=== PATIENT | female | born 1940 | race Caucasian/White ===

== ENCOUNTER 2018-06-01 01:43 | Emergency (ER) | payer OTHER, BC ==
[~2018-06-01] VITALS: Ht 170.2 cm; Wt 54.4 kg
[~2018-06-01 01:43] MED LIST: ASPI-1153 PO; ATEN-41 PO; CLOP75TA2 PO; LEVO75TA7 PO; SULF1TAB48 PO
[2018-06-01 01:46] VITALS: BP_SYST 139
[2018-06-01] MEDS ORDERED: ONDANSETRON HCL 4 MG/2 ML VIAL IVP ONE (02:00)
[2018-06-01] MEDS ORDERED: MORPHINE 4 MG/ML INJ. SYRINGE IVP ONE (02:00)
[2018-06-01 02:51] LABS: BASOPHILS # (AUTO) 0.1 K/uL (0.0-0.2); BASOPHILS % (AUTO) 1.2 % (0.0-2.0); EOSINOPHILS # (AUTO) 0.3 K/uL (0.0-0.4); HEMATOCRIT 37.3 % (36-48); HEMOGLOBIN 12.2 g/dL (12.0-16.0); LYMPHOCYTES # (AUTO) 2.8 K/uL (1.0-5.5); LYMPHOCYTES % (AUTO) 28.1 % (20.5-51.5); MEAN CORPUSCULAR HEMOGLOBIN 30 pg (27-31); MEAN CORPUSCULAR HGB CONC 33 % (32-36); MEAN CORPUSCULAR VOLUME 93 fL (79.0-98.0); MONOCYTES # (AUTO) 0.8 K/uL (0.0-1.0); MONOCYTES % (AUTO) 7.8 % (1.7-9.3); NEUTROPHILS # (AUTO) 5.8 K/uL (1.8-7.7); NEUTROPHILS % (AUTO) 59.9 % (40.0-70.0); PLATELET COUNT (AUTO) 243 K/uL (130-430); RED BLOOD CELL COUNT(AUTO) 4.01 MIL/uL (4.2-6.2); RED CELL DISTRIBUTION WIDTH 13.1 % (9.0-15.0); WHITE BLOOD COUNT (AUTO) 9.8 K/uL (4.8-10.8)
[2018-06-01 03:11] LABS: ANION GAP 8 (5-15); CHLORIDE 106 mmol/L (98-107); CREATININE 0.75 mg/dL (0.55-1.30); GLUCOSE 82 mg/dL (70-99); POTASSIUM 3.7 mmol/L (3.5-5.1); SODIUM SERUM 139 mmol/L (136-145); UREA NITROGEN, BLOOD 22 mg/dL (8-21)
[2018-06-01] MEDS ORDERED: MORPHINE 4 MG/ML INJ. SYRINGE IM ONE (03:15)
[2018-06-01 03:16] LABS: ALANINE AMINOTRANSFERASE 16 U/L (12-78); ASPARTATE AMINOTRANSFERASE 17 U/L (10-37); TOTAL BILIRUBIN 0.5 mg/dL (0.0-1.0)
[2018-06-01] MEDS ORDERED: ONDANSETRON HCL 4 MG/2 ML VIAL IM ONE (03:30)
[2018-06-01] MEDS ORDERED: BACITRACIN 1 GM OINT TP ONE (03:50)
[2018-06-01 04:30] VITALS: BP_SYST 125
== END 2018-06-01 04:30 | disposition home or self-care (01) ==
LOC: SED 01:43
DX: S42.251A Displaced fracture of greater tuberosity of right humerus, initial encounter for closed fracture (principal); I10 Essential (primary) hypertension; Z86.73 Personal history of transient ischemic attack (TIA), and cerebral infarction without residual deficits; Z85.038 Personal history of other malignant neoplasm of large intestine; Z85.828 Personal history of other malignant neoplasm of skin; Z88.0 Allergy status to penicillin; Z79.82 Long term (current) use of aspirin; Z79.899 Other long term (current) drug therapy; W18.09XA Striking against other object with subsequent fall, initial encounter; Y93.89 Activity, other specified; Y92.89 Other specified places as the place of occurrence of the external cause; Y99.8 Other external cause status
CPT/HCPCS: 36415; 71045; 73060; 80053; 82550; 85025; 96372; 99284; J2270; J2405

== ENCOUNTER 2018-08-23 11:29 | Emergency (ER) | payer OTHER, BC ==
[~2018-08-23] VITALS: Ht 160 cm; Wt 43.1 kg
[2018-08-23 11:50] VITALS: BP_SYST 112
--- NOTE | 2018-08-23 12:00 | NUR ---
Patient to ER bed 8 to gown for evaluation. Side rails up. Report given to Jason EDMONDS.
--- NOTE | 2018-08-23 12:30 | NUR ---
Patient presented to ER with c/o confusion and foul smelling urine. Patient A&Ox2,slurred speech, skin pink, respirations equal bilat, afebrile. Patient arrived in wheelchair with daughter. Daughter stated that pt home meds were changed this week and pt has foul smelling urine, denies pain/N/V/D.
[2018-08-23 12:39] LABS: BASOPHILS % (AUTO) 0.5 % (0.0-2.0); EOSINOPHILS # (AUTO) 0.3 K/uL (0.0-0.4); EOSINOPHILS % (AUTO) 3.8 % (0.0-4.0); HEMATOCRIT 38.7 % (36-48); HEMOGLOBIN 12.6 g/dL (12.0-16.0); LYMPHOCYTES # (AUTO) 2.8 K/uL (1.0-5.5); LYMPHOCYTES % (AUTO) 33.7 % (20.5-51.5); MEAN CORPUSCULAR HEMOGLOBIN 31 pg (27-31); MEAN CORPUSCULAR HGB CONC 33 % (32-36); MEAN CORPUSCULAR VOLUME 94 fL (79.0-98.0); MONOCYTES # (AUTO) 0.8 K/uL (0.0-1.0); MONOCYTES % (AUTO) 9.2 % (1.7-9.3); NEUTROPHILS # (AUTO) 4.4 K/uL (1.8-7.7); NEUTROPHILS % (AUTO) 52.8 % (40.0-70.0); PLATELET COUNT (AUTO) 299 K/uL (130-430); RED BLOOD CELL COUNT(AUTO) 4.13 MIL/uL (4.2-6.2); RED CELL DISTRIBUTION WIDTH 13.9 % (9.0-15.0); WHITE BLOOD COUNT (AUTO) 8.4 K/uL (4.8-10.8)
--- NOTE | 2018-08-23 12:40 | NUR ---
ER Dr. Alaniz at bedside examining patient.
[2018-08-23 12:52] LABS: ANION GAP 9 (5-15); CALCIUM 9.8 mg/dL (8.4-11.0); CHLORIDE 104 mmol/L (98-107); CREATININE 0.89 mg/dL (0.55-1.30); GLUCOSE 98 mg/dL (70-99); POTASSIUM 4.4 mmol/L (3.5-5.1); SODIUM SERUM 141 mmol/L (136-145); UREA NITROGEN, BLOOD 23 mg/dL (8-21)
[2018-08-23 12:57] LABS: ALANINE AMINOTRANSFERASE 12 U/L (12-78); ASPARTATE AMINOTRANSFERASE 13 U/L (10-37); TOTAL BILIRUBIN 0.4 mg/dL (0.0-1.0)
[2018-08-23 13:32] LABS: BILIRUBIN,URINE NEGATIVE (NEGATIVE); BLOOD, URINE 3+ (NEGATIVE); CLARITY/URINE CLOUDY (CLEAR); COLOR,URINE YELLOW (YELLOW); GLUCOSE,URINE NEGATIVE (NEGATIVE); KETONES,URINE NEGATIVE (NEGATIVE); LEUKOCYTE ESTERASE ,URINE 3+ (NEGATIVE); NITRITE, URINE POSITIVE (NEGATIVE); PROTEIN URINE 2+ (NEGATIVE); UROBILINOGEN,URINE 0.2 (0.2-1.0)
[2018-08-23 13:45] LABS: BACTERIA,URINE MODERATE /HPF (None Seen); RBC,URINE >100 /HPF (0-3); WBC,URINE >100 /HPF (0-3)
[2018-08-23] MEDS ORDERED: NACL 0.9% 1,000 ML IV ONE (14:24)
[2018-08-23] MEDS ORDERED: DIPHENHYDRAMINE INJ 50 MG/ML VIAL IVP ONE (14:30)
[2018-08-23] MEDS ORDERED: cefTRIAXone 1 GM IVPB PREMIX 50 ML IV ONE (14:30)
[2018-08-23 15:57] VITALS: BP_SYST 119
--- NOTE | 2018-08-23 15:57 | NUR ---
Patient given written and verbal discharge instructions and verbalizes understanding. ER MD Alaniz discussed with patient the results and treatment provided. Patient in stable condition. ID arm band removed. IV catheter removed intact and dressing applied, no active bleeding. Rx of Keflex, Pyridium given. Patient educated on pain management and to follow up with PMD. Pain Scale 0. Opportunity for questions provided and answered. Medication side effect fact sheet provided.
--- NOTE | 2018-08-23 16:53 | NUR ---
Pharmacist called with report that the patient had a allergic reaction to PCN in the past causing airway obstruction. Per Dr. Alaniz the prescription was changed to Macrobid 100mg PO Bid x 7 days.
--- NOTE | 2018-08-25 19:09 | NUR ---
final C & S report reviewed shows resistance to previously pescribed Macrobid. Patients daughter agreed to bring her back in for revaluation.
== END 2018-08-23 16:53 | disposition home or self-care (01) ==
LOC: SED 11:29
DX: N39.0 Urinary tract infection, site not specified (principal); G30.9 Alzheimer's disease, unspecified; I10 Essential (primary) hypertension; Z86.73 Personal history of transient ischemic attack (TIA), and cerebral infarction without residual deficits; Z85.828 Personal history of other malignant neoplasm of skin; Z85.038 Personal history of other malignant neoplasm of large intestine; Z79.82 Long term (current) use of aspirin; Z79.899 Other long term (current) drug therapy; Z88.0 Allergy status to penicillin
CPT/HCPCS: 36415; 80053; 81000; 83605; 85025; 87040; 87086; 87186; 96365; 96375; 99283; J0696; J1200; J7030

== ENCOUNTER 2018-08-25 21:36 | Inpatient (IN) | payer OTHER, BC ==
[~2018-08-25] VITALS: Ht 165.1 cm; Wt 49.0 kg
[2018-08-25 21:40] VITALS: BP_SYST 153
--- NOTE | 2018-08-25 21:57 | NUR ---
Pt called back to ER r/t Urine Cx results and need for change in antibiotic. Pt positive for Proteus mirabilis. Pt BIB daughter via W/C, alert, responsive, NAD. Addendum: 08/26/18 at 0000 by SDEDAJ Pt from [facility] in [place], [place].
--- NOTE | 2018-08-25 21:57 | NUR ---
[facility] Side rails up. Report given to SUZETTE EDMONDS.
--- NOTE | 2018-08-25 22:00 | NUR ---
Dr. Huddleston evaluating pt.
--- NOTE | 2018-08-25 22:15 | NUR ---
Lab drawing blood.
[2018-08-25] MEDS ORDERED: GENTAMICIN 80 mg/100 mL NS 100 ML IV ONE (22:45)
--- NOTE | 2018-08-25 22:48 | NUR ---
Pt move to bed 7.
--- NOTE | 2018-08-25 23:00 | NUR ---
X-ray at bedside.
[2018-08-25 23:09] LABS: ANION GAP 10 (5-15); BASOPHILS % (AUTO) 0.3 % (0.0-2.0); CALCIUM 9.4 mg/dL (8.4-11.0); CHLORIDE 106 mmol/L (98-107); CREATININE 0.85 mg/dL (0.55-1.30); EOSINOPHILS # (AUTO) 0.8 K/uL (0.0-0.4); EOSINOPHILS % (AUTO) 6.5 % (0.0-4.0); GLUCOSE 126 mg/dL (70-99); HEMATOCRIT 37.3 % (36-48); HEMOGLOBIN 12.1 g/dL (12.0-16.0); LYMPHOCYTES # (AUTO) 1.7 K/uL (1.0-5.5); LYMPHOCYTES % (AUTO) 13.8 % (20.5-51.5); MEAN CORPUSCULAR HEMOGLOBIN 31 pg (27-31); MEAN CORPUSCULAR HGB CONC 33 % (32-36); MEAN CORPUSCULAR VOLUME 94 fL (79.0-98.0); MONOCYTES # (AUTO) 0.9 K/uL (0.0-1.0); MONOCYTES % (AUTO) 7.4 % (1.7-9.3); NEUTROPHILS # (AUTO) 8.9 K/uL (1.8-7.7); PLATELET COUNT (AUTO) 285 K/uL (130-430); RED BLOOD CELL COUNT(AUTO) 3.97 MIL/uL (4.2-6.2); SODIUM SERUM 144 mmol/L (136-145); UREA NITROGEN, BLOOD 24 mg/dL (8-21); WHITE BLOOD COUNT (AUTO) 12.4 K/uL (4.8-10.8)
--- NOTE | 2018-08-25 23:10 | NUR ---
#14 Fr In/Out Urinary Cath performed, approx 150 mL dark alayna and cloudy urine return. Specimen collected and sent to lab. Pt tolerated fair.
[2018-08-25 23:14] LABS: ALANINE AMINOTRANSFERASE 11 U/L (12-78); ASPARTATE AMINOTRANSFERASE 13 U/L (10-37); TOTAL BILIRUBIN 0.3 mg/dL (0.0-1.0)
--- NOTE | 2018-08-25 23:20 | NUR ---
# 20 gauge angiocath placed to RAC. Use of asceptic technique. Opsite placed over site. Blood return noted. Blood for lab drawn from site. Flushed with 10 cc of normal saline. No evidence of infiltration noted. Patient tolerated well.
[2018-08-25 23:22] LABS: BILIRUBIN,URINE NEGATIVE (NEGATIVE); BLOOD, URINE 3+ (NEGATIVE); CLARITY/URINE HAZY (CLEAR); COLOR,URINE YELLOW (YELLOW); GLUCOSE,URINE NEGATIVE (NEGATIVE); KETONES,URINE TRACE (NEGATIVE); LEUKOCYTE ESTERASE ,URINE 3+ (NEGATIVE); NITRITE, URINE NEGATIVE (NEGATIVE); PROTEIN URINE 1+ (NEGATIVE); UROBILINOGEN,URINE 0.2 (0.2-1.0)
[2018-08-25 23:34] LABS: BACTERIA,URINE MANY /HPF (None Seen); RBC,URINE 20-50 /HPF (0-3); WBC,URINE >100 /HPF (0-3)
[2018-08-25 23:35] LABS: MUCUS,URINE 1+ /LPF (None Seen)
--- NOTE | 2018-08-25 23:50 | NUR ---
Patient will be admitted to care of Dr. Beltrán. Admitted to Med/Surg unit. Will go to room 121A. Belongings list completed. Summary report printed. Report given to KENDAL Laird.
--- NOTE | 2018-08-25 23:55 | NUR ---
Pt DNR status. POLST on chart.
--- NOTE | 2018-08-25 23:59 | NUR ---
Specimen for MRSA collected and sent to lab.
--- NOTE | 2018-08-25 23:59 | NUR ---
Medication reconciliation completed with information provided by pt.'s daughter. Any prior medication reconciliation on file was reviewed and corrected.
--- NOTE | 2018-08-26 00:02 | NUR ---
ADMISSION: The patient, DORIS WAYNE, 78 y/o, F admitted by SHON MATSON MD, with the diagnosis of UTI ,daughter at bedside ,was given written information regarding hospital policies, unit procedures and contact persons.
[2018-08-26 00:14] VITALS: BP_SYST 114
--- NOTE | 2018-08-26 01:05 | NUR ---
Left elbow skin tear was cleansed with normal saline and pat dried. Non-stick dressing was applied and wrapped with Yasmeen. Wound is 100% pinkish with small amount of pinkish drainage noted. No odor noted.
--- NOTE | 2018-08-26 03:00 | NUR ---
Pt is sleeping without any distress noted. Fall and safety precautions are in place. Saline lock is intact in RAC.
--- NOTE | 2018-08-26 05:00 | NUR ---
Pt is sleeping without any distress noted. Saline lock is intact in RAC. Fall and safety precautions are in place
--- NOTE | 2018-08-26 06:44 | NUR ---
Pt is awake and resting comfortably in bed. All pt's needs were attended to. No fall or injury noted this shift. Saline lock is intact in RAC. Call light is with pt and bed alarm is on. Will endorse to day shift nurse.
--- NOTE | 2018-08-26 07:08 | NUR ---
Code status Spoke with the patient's daughter, So, to verify the patient's code status. Per So, the patient is a full code. This was verified between two RN's, myself, Zulma Castillo and Eitan Huertas.
--- NOTE | 2018-08-26 07:39 | NUR ---
INITIAL NOTE RECEIVED PT IN BED, NO S/S OF DISTRESS OR SOB NOTED, PT HAS NO C/O PAIN AT THIS TIME, PT IN STABLE CONDITION, PT AAOX1, VERBAL, CONFUSED, PROVIDED PT WITH REALITY ORIENTATION. IV CATHETER PATENT, NO SIGNS OF INFECTION OR INFILTRATION NOTED. BED AT LOWEST POSITION, CALL LIGHT WITHIN REACH, WILL CONTINUE TO MONITOR PT FOR ANY CHANGES, FALL AND SAFETY PRECAUTIONS IN PLACE. CONTACT PRECAUTIONS IN PLACE.
[2018-08-26 07:41] VITALS: BP_SYST 127
--- NOTE | 2018-08-26 10:19 | NUR ---
Nutrition Update Tevin Scale 15 noted. Pt admitted for UTI. Diet: regular BMI: 18 kg/m2 RD to follow per nutrition care standards.
--- NOTE | 2018-08-26 10:20 | NUR ---
ROUNDS PT IN BED, NO S/S OF DISTRESS OR SOB NOTED, PT HAS NO C/O PAIN AT THIS TIME, PT IN STABLE CONDITION, PT RESTING COMFORTABLY, WILL CONTINUE TO MONITOR PT FOR ANY CHANGES.
[2018-08-26 12:09] VITALS: BP_SYST 131
--- NOTE | 2018-08-26 12:50 | NUR ---
ROUNDS PT IN BED, NO S/S OF DISTRESS OR SOB NOTED, PT HAS NO C/O PAIN AT THIS TIME WHEN ASKED. NO FACIAL GRIMACING NOTED, PT IN STABLE CONDITION, PT RESTING COMFORTABLY, TALKING TO DAUGHTER AT BEDSIDE, WILL CONTINUE TO MONITOR PT FOR ANY CHANGES.
--- NOTE | 2018-08-26 14:23 | NUR ---
MD CALL DR MATSON PAGED TO ASK IF HE CAN ORDER A BOOST FOR PATIENT DUE TO DECREASED APPETITE, AWAITING CALL BACK.
--- NOTE | 2018-08-26 15:17 | NUR ---
Wound Evaluation: Wound Consult ordered for Low Tevin Score. Patient evaluated for a low Tevin score of 15. Patient was awake, alert, confused, and received in a Bell Bed with an IsoFlex ABDULKADIR mattress. Patient needs assist to turn in bed. Skin is fair (-). Recommend reposition patient side to side only every 2 hours with pillow support. Elevate, offload and float bilateral heels with one pillow lengthwise under each extremity at all times. Offload pressure areas with pillows for pressure re-distribution. Perform skin care and monitor skin integrity Q shift. Use moisture barrier cream on moisture susceptible areas QID and PRN for soiling. Skin assessment: 1. Left Lateral Forearm: Full thickness skin tear, present on admission. Wound bed has 100% dull pink tissue. No odor, scant sanguineous drainage. Periwound intact, right lateral aspect of periwound has rolled up residual skin. Surrounding skin is fragile. Recommend: Cleanse skin tear with normal saline. Pat dry. Apply hydrogel to skin tear bed. Apply sure prep to cheri tear. Cover with nonadhesive foam dressing. Wrap with Yasmeen wrap. Perform skin tear care daily, and as needed for dressing soiling or dislodgment. 2. Bilateral buttocks Blanchable red patches/psoriasis, present on admission. Recommend: Cleanse involved area with mild soap and water. Pat dry. Apply Hydraguard barrier cream to involved area. Perform site care 4 times a day, and as needed for soiling. 3. Bilateral heels: Blanchable redness, present on admission. Recommend: No dressings needed. Elevate, offload and float bilateral heels with one pillow lengthwise under each extremity at all times.
[2018-08-26 16:09] VITALS: BP_SYST 111
--- NOTE | 2018-08-26 17:08 | NUR ---
Dietitian Recommendations * Recommend Regular diet w/ Ensure Enlive TID to promote oral intake. (ONS provides an additional 1050 kcal and 60 g Pro per day.) LP, RD Please refer to Nutrition Assessment for details.
--- NOTE | 2018-08-26 18:21 | NUR ---
CLOSING NOTE PT IN BED, NO S/S OF DISTRESS OR SOB NOTED, PT HAS NO C/O PAIN AT THIS TIME, PT IN STABLE CONDITION, PT AAOX1, VERBAL, CONFUSED, PROVIDED PT WITH REALITY ORIENTATION. IV CATHETER PATENT, NO SIGNS OF INFECTION OR INFILTRATION NOTED. BED AT LOWEST POSITION, CALL LIGHT WITHIN REACH, WILL ENDORSE CARE OF PT TO INCOMING NURSE, FALL AND SAFETY PRECAUTIONS IN PLACE. CONTACT PRECAUTIONS IN PLACE.
--- NOTE | 2018-08-26 19:10 | NUR ---
OPENING NOTE Received report from Kiley. Patient resting in bed awake, alert, oriented x1 with confusion. Re-oriented patient. Breathing unlabored and even on room air. No signs of distress, no needs at this time. Fall, safety, aspiration, contact precautions in place. Bed in lowest position, brake on, alarm on, call light within reach. Will continue to monitor.
[2018-08-26] MEDS: ATENOLOL 25 MG TABLET(TENORMIN) PO SCH (20:21)
[2018-08-26] MEDS: CLOPIDOGREL BISULFATE 75 MG TABLET PO SCH (20:22)
[2018-08-26 20:25] VITALS: BP_SYST 113
[2018-08-26] MEDS: GENTAMICIN 80 mg/100 mL NS 100 ML IV SCH (22:46)
--- NOTE | 2018-08-26 22:59 | NUR ---
IV abx hung
[2018-08-27 00:20] VITALS: BP_SYST 137
--- NOTE | 2018-08-27 00:30 | NUR ---
ENDORSEMENT OF CARE Endorsed patient care to KENDAL Yañez. Report given.
--- NOTE | 2018-08-27 00:32 | NUR ---
Assumed nursing care of pt from nurse Mcnair. Pt is resting quietly in bed. No acute distress noted. Saline lock in RAC is without any signs of infiltration. Call light is with pt and bed alarm is on.
--- NOTE | 2018-08-27 02:00 | NUR ---
Pt is sleeping comfortably in bed. Fall and safety precautions are in place.
--- NOTE | 2018-08-27 04:00 | NUR ---
Pt is sleeping quietly in bed. Fall and safety precautions are in place.
--- NOTE | 2018-08-27 07:30 | NUR ---
OPENING NOTE patient is resting in bed, patient is able to state name and but is not sure where she is at, assessment completed, educated regeneration operator light system and plan of care, patient nodded her head and said okay, patient denies any pain at this time and no signs of respiratory distress, no other needs addressed at this time, IV line clean with no signs of infiltration, bed in the lowest position, three side rails up, call light within reach, bed close to station, contact precautions in place.
[2018-08-27 08:35] VITALS: BP_SYST 113
[2018-08-27] MEDS: LEVOTHYROXINE SODIUM 0.075 MG TABLET PO SCH (08:38)
[2018-08-27] MEDS: ASPIRIN 81 MG TABLET(ECOTRIN) PO SCH (08:38)
[2018-08-27 10:44] LABS: ANION GAP 5 (5-15); CALCIUM 9.4 mg/dL (8.4-11.0); CHLORIDE 110 mmol/L (98-107); CREATININE 0.59 mg/dL (0.55-1.30); GLUCOSE 133 mg/dL (70-99); POTASSIUM 3.9 mmol/L (3.5-5.1); SODIUM SERUM 145 mmol/L (136-145); UREA NITROGEN, BLOOD 18 mg/dL (8-21)
[2018-08-27 11:19] VITALS: BP_SYST 112
--- NOTE | 2018-08-27 11:19 | NUR ---
PATIENT IS RESTING IN BED no signs of pain or respiratory distress, no other needs addressed at this time, fall/safety precautions in place, contact precautions in place.
--- NOTE | 2018-08-27 14:08 | NUR ---
DC Planning: Per pt's request to speak with her dtr/So @ [phone] regarding dcp to snf for continue IV abx per dr. Beltrán's recommendation. Lindsay does not want pt. going to [facility]. She is coming in to get more info of the vendor choices at 3 pm today. Addendum: 08/28/18 at 0954 by Latesha Barraza RN Late entry: s/w So at 4 pm yesterday; discussing about snf of choice in the are. She requested 1. [facility], 2. [facility], and [facility] made aware.
[2018-08-27 14:50] VITALS: BP_SYST 115
--- NOTE | 2018-08-27 16:27 | NUR ---
rounds patient is resting in bed, visitor at the bedside, assisted patient with bedpan, no other needs addressed at this time, fall/safety precautions in place, contact precautions in place.
--- NOTE | 2018-08-27 18:45 | NUR ---
closing note patient is resting in bed, visitor present but is about to leave, assisted patient with repositioning, no other needs addressed at time, patient denies any pain, no signs of respiratory distress, will endorse report to noc shift nurse, fall/safety precautions in place, contact precautions in place.
[2018-08-27 20:05] VITALS: BP_SYST 121
--- NOTE | 2018-08-27 20:05 | NUR ---
Opening notes Pt AAOx1, VSS, afebrile. No s/s distress noted. Pt denies any pain at this time. Call light within reach. Bed low, locked, bed alarm on. Will continue to monitor.
[2018-08-27] MEDS: CLOPIDOGREL BISULFATE 75 MG TABLET PO SCH (21:27)
[2018-08-27] MEDS: ATENOLOL 25 MG TABLET(TENORMIN) PO SCH (21:27)
--- NOTE | 2018-08-27 22:00 | NUR ---
Rounds/skin care Pt alert, awake, incontinent BM/urine. Pericare provided with SKILLED NURSING FACILITY COUNSELOR assist. Hydraguard skin barrier cream applied to sacral area. Repositioned. Call light within reach. Safety measures in place. To monitor.
[2018-08-27] MEDS: GENTAMICIN 80 mg/100 mL NS 100 ML IV SCH (23:59)
[2018-08-28 00:15] VITALS: BP_SYST 134
--- NOTE | 2018-08-28 02:30 | NUR ---
IV Re start Pt awake. IV restarted L. FA 22G good blood return. Pt tolerated well. Call light within reach. Bed low, locked, alarm on. maintained contact isolation. To monitor.
--- NOTE | 2018-08-28 04:35 | NUR ---
Rounds Pt asleep. No s/s distress or discomfort noted. Safety measures maintained. Bed alarm on. To monitor.
--- NOTE | 2018-08-28 06:45 | NUR ---
Closing notes Pt sleeping at this time. No s/s distress or discomfort noted. R. FA 22G saline lock clear and patent. Call light within reach. Bed low, locked, alarm on. To endorse to AM nurse.
--- NOTE | 2018-08-28 07:50 | NUR ---
OPENING NOTE patient is resting in bed, patient is able to state name and but is not sure where she is at, assessment completed, educated insulation worker interior surface light system and plan of care, patient nodded her head and said okay, patient denies any pain at this time and no signs of respiratory distress, no other needs addressed at this time, IV line clean with no signs of infiltration, bed in the lowest position, three side rails up, call light within reach, bed close to station, latest urine culture came back negative and patient is no longer in isolation, head charger aware.
[2018-08-28] MEDS: LEVOTHYROXINE SODIUM 0.075 MG TABLET PO SCH (08:05)
[2018-08-28] MEDS: ASPIRIN 81 MG TABLET(ECOTRIN) PO SCH (08:05)
[2018-08-28 08:14] VITALS: BP_SYST 114
--- NOTE | 2018-08-28 10:00 | NUR ---
rounds patient is resting in bed, eyes closed, breathing easy and nonlabored, no signs of distress, no other needs addressed at this time, fall/safety precautions in place.
[2018-08-28 11:54] VITALS: BP_SYST 109
--- NOTE | 2018-08-28 12:26 | NUR ---
Claude Beltrán: Paging Dr. Beltrán regarding home medication orders for discharge. Awaiting callback. Addendum: 08/28/18 at 1232 by Rona Franz RN Spoke to Dr. Beltrán: Spoke to Dr. Beltrán, per Dr. Beltrán "Continue all home meds". Orders to be entered by
[2018-08-28 12:39] VITALS: BP_SYST 109
--- NOTE | 2018-08-28 13:00 | NUR ---
rounds patient is resting in bed, HOTEL ASSISTANT MANAGER attempted to feed patient, patient was disinterested, no other needs addressed at this time, fall/safety precautions in place.
--- NOTE | 2018-09-02 15:58 | NUR ---
Discharge Follow Up Phone Call DERRICK CAR OPERATOR phoned patient, , and spoke with her daughter, So. So stated that patient was doing well. She has a follow up appointment with her PCP on 09/03/18. No questions or concerns.
== END 2018-08-28 13:30 | disposition home or self-care (01) | DRG 690 ==
LOC: SED 21:36 → SMU 23:37
PROVIDERS: ADMIT Internal Medicine Hospice and Palliative Medicine; ATTEND Internal Medicine Hospice and Palliative Medicine
DX: N39.0 Urinary tract infection, site not specified (principal); F02.80 Dementia in other diseases classified elsewhere, unspecified severity, without behavioral disturbance, psychotic disturbance, mood disturbance, and anxiety; G30.9 Alzheimer's disease, unspecified; I10 Essential (primary) hypertension; Z16.24 Resistance to multiple antibiotics; Z86.73 Personal history of transient ischemic attack (TIA), and cerebral infarction without residual deficits; Z90.49 Acquired absence of other specified parts of digestive tract; Z79.899 Other long term (current) drug therapy; Z79.82 Long term (current) use of aspirin; Z88.0 Allergy status to penicillin; Z85.038 Personal history of other malignant neoplasm of large intestine; Z85.828 Personal history of other malignant neoplasm of skin
CPT/HCPCS: 36415; 71045; 80048; 80053; 81000-TC; 83605; 84484; 85025; 87040-TC; 87081; 87086; 87186-TC; 93005; 96365; 96375; 99283; 99285; J0696; J1200; J1580; J7030

== ENCOUNTER 2018-09-04 10:53 | Inpatient (IN) | payer OTHER, BC ==
[~2018-09-04] VITALS: Ht 160 cm; Wt 49.0 kg
[2018-09-04 11:13] VITALS: BP_SYST 125
--- NOTE | 2018-09-04 11:15 | NUR ---
Patient to ER bed 07 to gown for evaluation. Side rails up.
--- NOTE | 2018-09-04 11:20 | NUR ---
patient BIB daughter, AOx1-2 from board and care with c/o no bowelmovement x 3 days. patient has slow to normal active bowelsounds. abd is firm and nontender upon palpation. patient has no other complaint or injury at this time.
--- NOTE | 2018-09-04 11:22 | NUR ---
ER at bedside examining patient.
--- NOTE | 2018-09-04 11:40 | NUR ---
patient sent to Radiology for CT scan in stable condition.
--- NOTE | 2018-09-04 11:58 | NUR ---
16 # FR In and Out catheter with use of sterile technique. Immediate return of 200 ml urine noted. Urine sample collected and sent to lab. Pt tolerated procedure .
--- NOTE | 2018-09-04 12:10 | NUR ---
Pt resting at this time, no s/s of distress, family at bedside.
[2018-09-04 12:27] LABS: BASOPHILS # (AUTO) 0.1 K/uL (0.0-0.2); BASOPHILS % (AUTO) 0.4 % (0.0-2.0); EOSINOPHILS % (AUTO) 0.1 % (0.0-4.0); HEMATOCRIT 36.9 % (36-48); HEMOGLOBIN 11.8 g/dL (12.0-16.0); LYMPHOCYTES # (AUTO) 1.8 K/uL (1.0-5.5); LYMPHOCYTES % (AUTO) 11.4 % (20.5-51.5); MEAN CORPUSCULAR HEMOGLOBIN 31 pg (27-31); MEAN CORPUSCULAR HGB CONC 32 % (32-36); MEAN CORPUSCULAR VOLUME 95 fL (79.0-98.0); MONOCYTES # (AUTO) 1.2 K/uL (0.0-1.0); NEUTROPHILS # (AUTO) 12.3 K/uL (1.8-7.7); NEUTROPHILS % (AUTO) 80.1 % (40.0-70.0); PLATELET COUNT (AUTO) 358 K/uL (130-430); RED BLOOD CELL COUNT(AUTO) 3.88 MIL/uL (4.2-6.2); WHITE BLOOD COUNT (AUTO) 15.3 K/uL (4.8-10.8)
--- NOTE | 2018-09-04 12:41 | NUR ---
# 16 FR Judge catheter with use of sterile technique. Immediate return of 0 cc due to In and Out placement x 30 minutes prior to insertion. Bedside drainage bag placed below level of bladder. Urine sample collected and sent to lab. Pt tolerated procedure well. Patient arrived with judge in place, changed due to standard of practice prior to admission. Patient unable to toilet self.
--- NOTE | 2018-09-04 12:43 | NUR ---
Medication reconciliation completed with information provided by family at bedside. Any prior medication reconciliation on file was reviewed and corrected.
[2018-09-04 12:44] LABS: INR 1.1 (0.8-1.2); PROTHROMBIN TIME 10.8 SECS (9.5-12.5)
[2018-09-04 12:52] LABS: ANION GAP 10 (5-15); CALCIUM 9.5 mg/dL (8.4-11.0); CHLORIDE 110 mmol/L (98-107); CREATININE 1.98 mg/dL (0.55-1.30); GLUCOSE 115 mg/dL (70-99); POTASSIUM 4.5 mmol/L (3.5-5.1); SODIUM SERUM 145 mmol/L (136-145); UREA NITROGEN, BLOOD 42 mg/dL (8-21)
[2018-09-04 12:58] LABS: ALANINE AMINOTRANSFERASE 11 U/L (12-78); ALBUMIN 2.8 g/dL (3.4-4.8); AMYLASE 307 U/L (0-100); ASPARTATE AMINOTRANSFERASE 16 U/L (10-37); LACTATE DEHYDROGENASE 214 U/L (81-234); LIPASE 60 U/L (73-393); TOTAL BILIRUBIN 0.5 mg/dL (0.0-1.0)
--- NOTE | 2018-09-04 13:11 | NUR ---
Dr. Roth was concerned about prior catheter placement due to lack of urine output with distended bladder on CT. # 16 FR Novak catheter with use of sterile technique. Immediate return of 500 cc cloudy yellow urine urine noted. Bedside drainage bag placed below level of bladder. Urine sample collected and sent to lab. Pt tolerated procedure well. Prior cath removed.
--- NOTE | 2018-09-04 13:56 | NUR ---
Patient will be admitted to care of [facility]. Admitted to Med/Surg unit. Will go to room 113A. Belongings list completed. Summary report printed. Report will be given at bedside.
--- NOTE | 2018-09-04 15:00 | NUR ---
patient sent to the floor in stable condition.
--- NOTE | 2018-09-04 15:00 | NUR ---
Admission Note Received patient from ER with diagnosis of abd distention and renal failure. Initial Plan of Care discussed-patient verbalized understanding. Family at bedside. Oriented to room, call light, pain management and safety.
[2018-09-04 15:17] VITALS: BP_SYST 100
[2018-09-04] MEDS: D5/0.45 NS 1,000 ML IV SCH (15:40)
[2018-09-04 17:14] LABS: BILIRUBIN,URINE NEGATIVE (NEGATIVE); BLOOD, URINE 2+ (NEGATIVE); KETONES,URINE NEGATIVE (NEGATIVE); LEUKOCYTE ESTERASE ,URINE 2+ (NEGATIVE); NITRITE, URINE POSITIVE (NEGATIVE); PROTEIN URINE 2+ (NEGATIVE)
--- NOTE | 2018-09-04 17:16 | NUR ---
IV RE-INSERTION: IV site not flushing. Restarted on RAC. Successful after 1 attempts. Resumed current IVF of D50.45NS and regulated @ 100 per hour. Will observe for any signs of infiltration.
[2018-09-04 17:25] LABS: CLARITY/URINE SLIGHTLY HAZY (CLEAR); COLOR,URINE ORANGE (YELLOW); GLUCOSE,URINE NEGATIVE (NEGATIVE)
[2018-09-04 17:35] LABS: BACTERIA,URINE FEW /HPF (None Seen); WBC,URINE >100 /HPF (0-3)
[2018-09-04 17:36] LABS: FINE GRANULAR CASTS,URINE 0-10 /LPF (None Seen); MUCUS,URINE 1+ /LPF (None Seen)
--- NOTE | 2018-09-04 18:51 | NUR ---
Closing Note: Patient in bed resting. Patient denies pain and discomfort. Breathing is even and unlabored with no distress noted. IV patent and intact running IVF per MD orders, no signs of infiltration. Safety precautions in place; bed in lowest position, wheels locked, side rails x3, bed alarm activated and call light within reach. All needs met. Will endorse plan of care to NOC, nurse.
--- NOTE | 2018-09-04 19:15 | NUR ---
Opening notes Received report. Patient resting comfortably in bed. No signs of distress noted. Breathing is even and unlabored. IV is patent and intact infusing fluids. Novak catheter in place, orange urine noted in collection bag. No needs at this time. Call light with the patient. Safety precautions in place.
[2018-09-04] MEDS ORDERED: ONDANSETRON HCL 4 MG/2 ML VIAL IVP PRN (20:00)
[2018-09-04] MEDS ORDERED: LORazepam 2 MG/ML VIAL IVP PRN (20:00)
[2018-09-04] MEDS ORDERED: ACETAMINOPHEN 325 MG TABLET PO PRN (20:00)
[2018-09-04] MEDS ORDERED: HYDROcodone/ACETAMIN 10-325 MG TAB PO PRN (20:00)
[2018-09-04] MEDS ORDERED: MORPHINE 4 MG/ML INJ. SYRINGE IVP PRN ×2 (20:00)
[2018-09-04] MEDS ORDERED: HYDROcodone/ACETAMIN 5-325 MG TAB (NORCO/ VICODIN) PO PRN (20:00)
[2018-09-04 20:08] VITALS: BP_SYST 111
[2018-09-04] MEDS ORDERED: LEVOFLOXACIN 500 MG/D5W 100 ML IV SCH (20:30)
[2018-09-04] MEDS: CLOPIDOGREL BISULFATE 75 MG TABLET PO SCH (21:00)
[2018-09-04] MEDS: ATENOLOL 25 MG TABLET(TENORMIN) PO SCH (21:00)
[2018-09-04] MEDS ORDERED: LEVOFLOXACIN 250 MG/D5W 0 ML IV ONE (21:06)
--- NOTE | 2018-09-04 21:30 | NUR ---
Resting Patient resting in bed, watching TV. No signs of distress noted. Breathing even and unlabored. Safety precautions in place.
--- NOTE | 2018-09-04 21:51 | NUR ---
Consultation Paged Reason for Consultation: hydronephrosis Was consult called: Y Person who was notified: Kimmy Consulting Physician: Kennedy Wilson Engineering Inspector Ordering Physician: Montez Ortiz
--- NOTE | 2018-09-04 21:58 | NUR ---
Consultation Paged Reason for Consultation: abdomen distention/fecal impaction Was consult called: Y Person who was notified: Kimmy Consulting Physician: Charlotte Han Paint Line Supervisor Ordering Physician: Montez Ortiz
--- NOTE | 2018-09-04 22:00 | NUR ---
Unable to collect blood cultures Lab is unable to collect blood cultures. Will try again at another time.
--- NOTE | 2018-09-04 22:04 | NUR ---
Consultation Paged Reason for Consultation: qiana Was consult called: Y Person who was notified: Kimmy Consulting Physician: Christopher Montes De Oca Lotus Notes Developer Ordering Physician: Montez Ortiz
[2018-09-04] MEDS ORDERED: LEVOFLOXACIN 500 MG/D5W 100 ML IV ONE (22:14)
--- NOTE | 2018-09-04 22:26 | NUR ---
Consultation Paged Reason for Consultation: uti Was consult called: Y Person who was notified: Kimmy Consulting Physician: Dylon Rendon Timber Sprinkler Ordering Physician: Montez Ortiz Face Sheet was faxed to [phone]
--- NOTE | 2018-09-05 | NUR ---
Sleeping Patient sleeping, vital signs stable. No needs. Call light with the patient. Safety precautions in place.
[2018-09-05 00:19] VITALS: BP_SYST 135
--- NOTE | 2018-09-05 02:00 | NUR ---
Sleeping No signs of distress noted. Breathing even and unlabored. Iv patent and intact infusing fluids. Safety precautions in place.
[2018-09-05] MEDS: D5/0.45 NS 1,000 ML IV SCH ×3 (03:40→18:39)
--- NOTE | 2018-09-05 04:18 | NUR ---
BM Patient has green, loose, watery stool. Hygiene care provided. Patient turned and repositioned. No other needs. Safety precautions in place.
--- NOTE | 2018-09-05 06:44 | NUR ---
Closing notes Patient is asleep in bed. No signs of distress noted. Breathing is even and unlabored. IV patent and intact infusing fluids. All needs met throughout the shift. Call light with the patient. Safety precautions in place. Will endorse care to day shift RN.
[2018-09-05 06:54] LABS: BASOPHILS # (AUTO) 0.1 K/uL (0.0-0.2); BASOPHILS % (AUTO) 0.5 % (0.0-2.0); EOSINOPHILS # (AUTO) 0.3 K/uL (0.0-0.4); EOSINOPHILS % (AUTO) 2.9 % (0.0-4.0); HEMATOCRIT 32.9 % (36-48); HEMOGLOBIN 10.6 g/dL (12.0-16.0); LYMPHOCYTES # (AUTO) 2.7 K/uL (1.0-5.5); MEAN CORPUSCULAR HEMOGLOBIN 30 pg (27-31); MEAN CORPUSCULAR HGB CONC 32 % (32-36); MEAN CORPUSCULAR VOLUME 94 fL (79.0-98.0); MONOCYTES % (AUTO) 9.2 % (1.7-9.3); NEUTROPHILS # (AUTO) 7.2 K/uL (1.8-7.7); NEUTROPHILS % (AUTO) 63.4 % (40.0-70.0); PLATELET COUNT (AUTO) 278 K/uL (130-430); RED CELL DISTRIBUTION WIDTH 14.1 % (9.0-15.0); WHITE BLOOD COUNT (AUTO) 11.4 K/uL (4.8-10.8)
[2018-09-05 07:32] LABS: ALANINE AMINOTRANSFERASE 13 U/L (12-78); ANION GAP 3 (5-15); ASPARTATE AMINOTRANSFERASE 15 U/L (10-37); CALCIUM 8.9 mg/dL (8.4-11.0); CHLORIDE 112 mmol/L (98-107); CREATININE 0.93 mg/dL (0.55-1.30); GLUCOSE 102 mg/dL (70-99); PHOSPHORUS 2.9 mg/dL (2.7-4.5); POTASSIUM 3.9 mmol/L (3.5-5.1); SODIUM SERUM 144 mmol/L (136-145); TOTAL BILIRUBIN 0.4 mg/dL (0.0-1.0); UREA NITROGEN, BLOOD 26 mg/dL (8-21)
--- NOTE | 2018-09-05 07:34 | NUR ---
Opening Note: Patient in bed resting. Patient denies pain and discomfort. Breathing is even and unlabored with no distress noted. IV patent and intact running IVF per MD orders, no signs of infiltration. Safety precautions in place; bed in lowest position, wheels locked, side rails x3, bed alarm activated and call light within reach. No needs at this time. Will continue to monitor.
[2018-09-05 08:03] VITALS: BP_SYST 118
[2018-09-05] MEDS: LEVOTHYROXINE SODIUM 0.075 MG TABLET PO SCH (08:12)
[2018-09-05] MEDS: ASPIRIN 81 MG TABLET(ECOTRIN) PO SCH (08:12)
[2018-09-05] MEDS ORDERED: MINERAL OIL 30 ML UDC PO ONE (09:45)
[2018-09-05] MEDS ORDERED: POLYETHYLENE GLYCOL 3350, 17 GM/ POWD.PACK PO ONE (09:45)
[2018-09-05] MEDS ORDERED: DOCUSATE SODIUM 100 MG CAPSULE PO ONE (09:45)
--- NOTE | 2018-09-05 10:28 | NUR ---
Nutrition Update Tevin Scale 16 noted. Pt admitted for abd distention and renal failure. Diet: clear liquid BMI: 19.2 kg/m2 RD to follow per nutrition care standards.
[2018-09-05] MEDS ORDERED: MINERAL OIL 133 ML ENEMA RC ONE (10:45)
[2018-09-05 11:35] VITALS: BP_SYST 119
--- NOTE | 2018-09-05 12:00 | NUR ---
Rounds: Patient in bed resting, repositioned for comfort. Will continue to monitor.
--- NOTE | 2018-09-05 13:30 | NUR ---
Wound Evaluation: Late note for 1330 secondary to patient care. Wound Consult ordered for Low Tevin Score. Patient evaluated for a low Tevin score of 16. Patient was awake, alert, confused, and received in a Menlo Bed with an IsoFlex ABDULKADIR mattress. Patient needs assist to turn in bed. Skin is fair (-). Recommend reposition patient side to side only every 2 hours with pillow support. Elevate, offload and float bilateral heels with one pillow lengthwise under each extremity at all times. Offload pressure areas with pillows for pressure re-distribution. Perform skin care and monitor skin integrity Q shift. Use moisture barrier cream on moisture susceptible areas QID and PRN for soiling. Initiate low air-loss therapy. Skin assessment: 1. Left Posterior Forearm: Full thickness skin tear, present on admission. Wound bed has 60% black scab, 35% yellow tissue, 5% red tissue. No odor, no drainage. Periwound intact. Surrounding skin is fragile. Skin tear measures 1.1 cm x 1.9 cm. 2. Left Lateral Forearm: Skin tear, present on admission. Wound bed has 100% brown scab. No odor, no drainage. Periwound intact. Surrounding skin is fragile. Skin tear measures 1.5 cm x 1.0 cm. Recommend: Cleanse skin tears with normal saline. Pat dry. Apply hydrogel to skin tear beds. Apply SurePrep to cheri-tears. Cover skin tears with nonadhesive foam dressing. Wrap with Yasmeen wrap. Perform skin tear care daily, and as needed for dressing soiling or dislodgment. 3. Left Antecubital Area: Healing wound, present on admission. Wound bed has 90% black scab, 10% dark red tissue. No odor, no drainage. Periwound intact. Surrounding skin is fragile. Skin tear measures 0.5 cm x 0.5 cm. Recommend: Cover skin tear with nonadhesive foam dressing. Wrap with Yasmeen wrap. Perform skin tear care daily, and as needed for dressing soiling or dislodgment. 4. Left Lateral Bicep: Full thickness skin tear, present on admission. Wound bed has 10% black scab, 90% red tissue. No odor, small sanguineous drainage. Periwound intact. Surrounding skin is fragile. Skin tear measures 1.5 cm x 1.5 cm. Recommend: Cleanse skin tear with normal saline. Pat dry. Apply hydrogel to skin tear bed. Apply sure prep to cheri tear. Cover with nonadhesive foam dressing. Wrap with Yasmeen wrap. Perform skin tear care daily, and as needed for dressing soiling or dislodgment. 5. Gluteal Sulcus: Intertrigo/wound with vertical linear-shaped dry, flaky skin, present on admission. Wound bed has 10% yellow dry, flaky skin, 10% pink scar tissue. No odor, no drainage. Periwound intact. Surrounding tissue is erythematous. Wound measures 4.7 cm x 0.7 cm. Bilateral buttocks have blanchable red patches/psoriasis. Recommend: Cleanse involved areas with mild soap and water. Pat dry. Apply Hydraguard barrier cream to Intertrigo area, then moisture barrier cream to surrounding tissue. Cover with foam dressing. Perform site care daily, and as needed for dressing soiling or dislodgment. 6. Bilateral heels: Blanchable redness, present on admission. Recommend: No dressings needed. Elevate, offload and float bilateral heels with one pillow lengthwise under each extremity at all times. Addendum: 09/05/18 at 1620 by Cruzito Chapin RN Addendum: Generalized psoriatic patches with dry, flaky, scaly skin present throughout body.
--- NOTE | 2018-09-05 13:30 | NUR ---
Wound Care: Wound care done to left arm and sacral area. Patient tolerated well.
--- NOTE | 2018-09-05 15:19 | NUR ---
Dietitian Recommendations * Recommend continuing clear liquid diet per MD * Consider advance diet if/when medically appropriate LP, RD Please refer to Nutrition Assessment for details.
[2018-09-05 15:41] VITALS: BP_SYST 118
--- NOTE | 2018-09-05 16:11 | NUR ---
Rounds: Patient in bed resting, repositioned. No distress noted. Safety precautions in place and call light within reach. No needs at this time. Will continue to monitor.
--- NOTE | 2018-09-05 17:40 | NUR ---
Paging Dr. Pascual: Paging Dr. Pascual regarding positive blood culture. Awaiting callback and orders.
[2018-09-05] MEDS: MINERAL OIL 30 ML UDC PO SCH ×2 (17:55→23:03)
--- NOTE | 2018-09-05 18:28 | NUR ---
Paging Dr. Pascual x2: Paging Dr. Pascual x2 regarding positive blood culture. Awaiting callback. Will endorse to NOC, nurse.
--- NOTE | 2018-09-05 18:43 | NUR ---
Closing Note: Patient in bed resting. Daughter at bedside. Patient denies pain and discomfort. Breathing is even and unlabored with no distress noted. IV patent and intact running IVF @ 100 ml/hr per MD orders, no signs of infiltration. SCD's in place. Safety precautions in place; bed in lowest position, wheels locked, side rails x3, bed alarm activated and call light within reach. All needs met. Will endorse plan of care to NOC, nurse.
--- NOTE | 2018-09-05 19:20 | NUR ---
Spoke to Dr. Pascual: Spoke to Dr. Pascual, made aware of culture results. Orders received. Orders to be entered by RN.
--- NOTE | 2018-09-05 19:20 | NUR ---
OPENING NOTES Late entry due to patient care. Bedside report received from daystnft nurse. Patient received lying in bed, awake, confused. No s/s of acute distress noted. No signs of discomfort noted. Chest rise and fall even bilaterally. IVF infusing well, IV site patent, no signs of infection or infiltration noted. HOB raised. Heels offloaded with pillow. Dressings intact, clean, and dry. No signs of active bleeding noted. Call light with patient. Novak attached, secured, and draining by gravity. Bed alarm on. Bed is locked and at lowest position. Will continue to monitor.
[2018-09-05 20:00] VITALS: BP_SYST 110
[2018-09-05] MEDS: CLOPIDOGREL BISULFATE 75 MG TABLET PO SCH (20:10)
[2018-09-05] MEDS: ATENOLOL 25 MG TABLET(TENORMIN) PO SCH (20:11)
[2018-09-05] MEDS: LEVOFLOXACIN 250 MG/D5W 50 ML IV SCH (20:12)
[2018-09-05] MEDS: MINERAL OIL/PETROLATUM,WHITE 113 GM CREAM.GM. TP SCH (20:12)
[2018-09-05] MEDS ORDERED: VANCOMYCIN HCL 1 GM/NS PREMIX 250 ML IV SCH (21:00)
--- NOTE | 2018-09-05 21:00 | NUR ---
ROUNDS Patient in bed, awake, no signs of discomfort noted. Breathing is even and unlabored. IVF infusing well. Call light with patient. Bed alarm on. Will continue to monitor.
[2018-09-05] MEDS ORDERED: VANCOMYCIN HCL 1000 MG/VIAL IV ONE (21:14)
--- NOTE | 2018-09-05 23:00 | NUR ---
ROUNDS Patient sleeping at this time. No signs of discomfort noted. Chest rise and fall even bilaterally. IVF infusing well. Call light with patient. Bed alarm on. Will continue to monitor.
--- NOTE | 2018-09-06 01:00 | NUR ---
ROUNDS Patient in bed, sleeping comfortably. No s/s of acute distress noted. Breathing even and unlabored. IVF infusing well. Call light with patient. Novak attached, secured and draining by gravity. Bed alarm on. Will continue to monitor.
[2018-09-06 01:32] VITALS: BP_SYST 118
[2018-09-06] MEDS: D5/0.45 NS 1,000 ML IV SCH ×2 (03:15→13:31)
[2018-09-06] MEDS: MINERAL OIL 30 ML UDC PO SCH (05:36)
--- NOTE | 2018-09-06 06:56 | NUR ---
CLOSING NOTES Patient in bed resting at this time, eyes closed, appears to be asleep. No s/s of acute distress noted. Breathing even and unlabored. IV site patent, IVF infusing well. Dressings intact, clean and dry. Novak attached, secured and draining by gravity. All needs met throughout shift. Fall and safety precautions maintained throughout shift. Will continue to monitor until patient care is endorsed to oncoming dayshift nurse.
[2018-09-06 07:50] LABS: BASOPHILS # (AUTO) 0.1 K/uL (0.0-0.2); BASOPHILS % (AUTO) 0.5 % (0.0-2.0); EOSINOPHILS # (AUTO) 0.3 K/uL (0.0-0.4); EOSINOPHILS % (AUTO) 3.1 % (0.0-4.0); HEMATOCRIT 32.5 % (36-48); HEMOGLOBIN 10.7 g/dL (12.0-16.0); LYMPHOCYTES # (AUTO) 2.5 K/uL (1.0-5.5); MEAN CORPUSCULAR HEMOGLOBIN 30 pg (27-31); MEAN CORPUSCULAR HGB CONC 33 % (32-36); MEAN CORPUSCULAR VOLUME 92 fL (79.0-98.0); MONOCYTES % (AUTO) 9.9 % (1.7-9.3); NEUTROPHILS # (AUTO) 6.1 K/uL (1.8-7.7); NEUTROPHILS % (AUTO) 61.5 % (40.0-70.0); PLATELET COUNT (AUTO) 282 K/uL (130-430); RED BLOOD CELL COUNT(AUTO) 3.52 MIL/uL (4.2-6.2); RED CELL DISTRIBUTION WIDTH 13.4 % (9.0-15.0); WHITE BLOOD COUNT (AUTO) 9.9 K/uL (4.8-10.8)
[2018-09-06 08:10] LABS: ALANINE AMINOTRANSFERASE 11 U/L (12-78); ANION GAP 8 (5-15); ASPARTATE AMINOTRANSFERASE 12 U/L (10-37); CALCIUM 8.5 mg/dL (8.4-11.0); CHLORIDE 107 mmol/L (98-107); CREATININE 0.67 mg/dL (0.55-1.30); GLUCOSE 100 mg/dL (70-99); PHOSPHORUS 2.7 mg/dL (2.7-4.5); POTASSIUM 3.7 mmol/L (3.5-5.1); SODIUM SERUM 140 mmol/L (136-145); TOTAL BILIRUBIN 0.5 mg/dL (0.0-1.0); UREA NITROGEN, BLOOD 10 mg/dL (8-21)
[2018-09-06 08:26] LABS: ERYTHROCYTE SEDIMENTATION RATE 76 MM/HR (0-20)
[2018-09-06] MEDS ORDERED: POLYETHYLENE GLYCOL 3350, 17 GM/ POWD.PACK PO SCH (09:00)
[2018-09-06] MEDS: MINERAL OIL/PETROLATUM,WHITE 113 GM CREAM.GM. TP SCH ×2 (09:00→20:40)
[2018-09-06 09:10] VITALS: BP_SYST 117
--- NOTE | 2018-09-06 09:10 | NUR ---
INITIAL ROUNDS/MD Received pt AAOx1, pleasantly confused. No s/s resp distress, no c/o pain or discomfort. IVF infusing well to JESSE at ordered rate with no s/s infiltration to site. Novak draining to gravity. Plan of care reviewed with pt-pt just smiled-will reinforce all teachings. Noted multiple dressings to BUE. Noted dressing to buttocks clean, dry and intact. Side rails up x3, room across form nursing station for safety.
[2018-09-06] MEDS: DOCUSATE SODIUM 100 MG CAPSULE PO SCH (11:08)
[2018-09-06] MEDS: ASPIRIN 81 MG TABLET(ECOTRIN) PO SCH (11:08)
[2018-09-06] MEDS: LEVOTHYROXINE SODIUM 0.075 MG TABLET PO SCH (11:08)
[2018-09-06] MEDS: POLYETHYLENE GLYCOL 3350, 17 GM/ POWD.PACK PO SCH ×2 (11:08→20:38)
[2018-09-06 12:02] VITALS: BP_SYST 121
[2018-09-06 16:02] VITALS: BP_SYST 113
--- NOTE | 2018-09-06 18:13 | NUR ---
CLOSING NOTES Pt sitting up in bed visiting with her daughter-per pt's daughter the pt states"ouch" when given some foods-noted pt with very dry lips-looked inside pt's mouth, just very pink and moist-did not notice any white patches. Will inform MD. Pt with no s/s resp distress, pt remains pleasantly confused at times. IVF infusing well to JESSE at ordered rate with no s/s infiltration to site. Aspiration, skin and safety precautions remain in place. Call light within reach.
--- NOTE | 2018-09-06 19:20 | NUR ---
OPENING NOTE Late entry due to patient care. Bedside report received from dayshift nurse. Patient received lying in bed, awake, watching TV. No s/s of acute distress noted. Breathing is even and unlabored. IVF infusing well, IV site is patent, no signs of infiltration or infection noted. Wound dressings intact, clean and dry. No signs of active bleeding noted. Novak attached, secured, and draining by gravity. Call light with patient. Bed alarm on. Bed is locked and at lowest position. Will continue to monitor.
[2018-09-06 20:00] VITALS: BP_SYST 103
[2018-09-06] MEDS: ATENOLOL 25 MG TABLET(TENORMIN) PO SCH (20:38)
[2018-09-06] MEDS: CLOPIDOGREL BISULFATE 75 MG TABLET PO SCH (20:38)
[2018-09-06] MEDS: VANCOMYCIN HCL 500 MG in NS 100 ML IV SCH (20:39)
[2018-09-06] MEDS ORDERED: VANCOMYCIN HCL 500 MG/VIAL IV ONE (20:46)
--- NOTE | 2018-09-06 21:00 | NUR ---
CIERA CARE Patient receiving ciera care from CUSTOMS ENTRY WRITER at this time. No signs of discomfort noted. Chest rise and fall even bilaterally. Patient tolerating procedure well. IVF infusing well. Call light with patient. Will continue to monitor.
--- NOTE | 2018-09-06 23:00 | NUR ---
ROUNDS Patient in bed sleeping at this time. No s/s of acute distress noted. Breathing even and unlabored. IVF infusing well. Call light with patient. Bed alarm on. Will continue to monitor.
[2018-09-07 00:17] VITALS: BP_SYST 115
--- NOTE | 2018-09-07 01:00 | NUR ---
ROUNDS Patient in bed sleeping comfortably. No signs of discomfort noted. Chest rise and fall even bilaterally. IVF infusing well. Call light with patient. Bed alarm on. Will continue to monitor.
--- NOTE | 2018-09-07 03:00 | NUR ---
ROUNDS Patient in bed asleep at this time. No s/s of acute distress noted. Breathing even and unlabored. Call light with patient. Bed alarm on. Will continue to monitor.
[2018-09-07] MEDS: D5/0.45 NS 1,000 ML IV SCH ×3 (04:33→21:27)
--- NOTE | 2018-09-07 05:00 | NUR ---
ROUNDS Patient in bed sleeping at this time. No signs of discomfort noted. Chest rise and fall even bilaterally. IVF infusing well. Call light with patient. Bed alarm on. Will continue to monitor.
[2018-09-07 06:47] LABS: BASOPHILS # (AUTO) 0.1 K/uL (0.0-0.2); BASOPHILS % (AUTO) 0.5 % (0.0-2.0); EOSINOPHILS # (AUTO) 0.4 K/uL (0.0-0.4); EOSINOPHILS % (AUTO) 3.1 % (0.0-4.0); HEMATOCRIT 33.3 % (36-48); HEMOGLOBIN 10.9 g/dL (12.0-16.0); LYMPHOCYTES # (AUTO) 3.2 K/uL (1.0-5.5); LYMPHOCYTES % (AUTO) 26.9 % (20.5-51.5); MEAN CORPUSCULAR HEMOGLOBIN 30 pg (27-31); MEAN CORPUSCULAR HGB CONC 33 % (32-36); MEAN CORPUSCULAR VOLUME 93 fL (79.0-98.0); MONOCYTES % (AUTO) 8.8 % (1.7-9.3); NEUTROPHILS # (AUTO) 7.3 K/uL (1.8-7.7); NEUTROPHILS % (AUTO) 60.7 % (40.0-70.0); PLATELET COUNT (AUTO) 279 K/uL (130-430); RED BLOOD CELL COUNT(AUTO) 3.59 MIL/uL (4.2-6.2); RED CELL DISTRIBUTION WIDTH 13.6 % (9.0-15.0)
--- NOTE | 2018-09-07 06:57 | NUR ---
CLOSING NOTES Patient in bed sleeping at this time. No s/s of acute distress noted. Breathing even and unlabored. IVF infusing well, IV site patent, no signs of infiltration or infection noted. HOB raised. Wound dressing intact, clean and dry. Novak attached, secured, and draining by gravity. All needs met throughout shift. Fall and safety precautions maintained throughout shift. Will continue to monitor until patient care is endorsed to oncoming dayshift nurse
[2018-09-07 07:25] VITALS: BP_SYST 115
--- NOTE | 2018-09-07 07:25 | NUR ---
INITIAL ROUNDS/MD Received pt AAOx1, pleasantly confused. No s/s resp distress, no c/o pain or discomfort. IVF infusing well to JESSE at ordered rate with no s/s infiltration to site. Novak draining to gravity with light alayna colored urine with sediments noted. Plan of care reviewed with pt-pt just smiled-will reinforce all teachings. Noted multiple dressings to BUE. Noted dressing to buttocks clean, dry and intact. Side rails up x3, room across form nursing station for safety. Call light within reach.
[2018-09-07 07:44] LABS: ANION GAP 8 (5-15); CALCIUM 8.7 mg/dL (8.4-11.0); CHLORIDE 105 mmol/L (98-107); CREATININE 0.67 mg/dL (0.55-1.30); GLUCOSE 90 mg/dL (70-99); PHOSPHORUS 3.2 mg/dL (2.7-4.5); POTASSIUM 3.2 mmol/L (3.5-5.1); SODIUM SERUM 138 mmol/L (136-145); UREA NITROGEN, BLOOD 7 mg/dL (8-21)
[2018-09-07 08:58] LABS: ERYTHROCYTE SEDIMENTATION RATE 77 MM/HR (0-20)
[2018-09-07] MEDS: MINERAL OIL/PETROLATUM,WHITE 113 GM CREAM.GM. TP SCH ×2 (09:00→20:46)
[2018-09-07] MEDS: POLYETHYLENE GLYCOL 3350, 17 GM/ POWD.PACK PO SCH ×2 (10:11→20:40)
[2018-09-07] MEDS: ASPIRIN 81 MG TABLET(ECOTRIN) PO SCH (10:12)
[2018-09-07] MEDS: LEVOTHYROXINE SODIUM 0.075 MG TABLET PO SCH (10:12)
[2018-09-07] MEDS: DOCUSATE SODIUM 100 MG CAPSULE PO SCH (10:12)
--- NOTE | 2018-09-07 11:55 | NUR ---
ROUNDS Pt resting quietly in bed with no s/s resp distress, no c/o pain or discomfort. Pt repositioned with pillow support and bilat heels off-loaded for skin care and comfort. All precautions remain in place.
[2018-09-07 12:02] VITALS: BP_SYST 112
[2018-09-07] MEDS ORDERED: LEVOTHYROXINE SODIUM 0.075 MG TABLET PO SCH (15:21)
--- NOTE | 2018-09-07 15:44 | NUR ---
LETTY/ Pt resting quietly in bed with no s/s resp distress, no c/o pain or discomfort. Pt repositioned with pillow support and heels off-loaded for comfort and skin care. Pt seen by Dr. Carrillo-awaiting any new orders.
[2018-09-07 16:02] VITALS: BP_SYST 115
--- NOTE | 2018-09-07 16:24 | NUR ---
PHYSICAL THERAPY CO-SIGN The Physical Therapy Progress Notes documented by Electrical Design Engineer have been reviewed. Reviewed/Co-Signed by: Ivy Desai PT Documentation Done by:SHIVA BURR PTA PROGRESS LETY. 09/07/18 Hgb=10.9 Addendum: 09/07/18 at 1624 by Ivy Desai PT Amended: Links added.
[2018-09-07] MEDS ORDERED: POTASSIUM CHLORIDE 20 MEQ TAB.PRT.SR PO ONE (16:30)
--- NOTE | 2018-09-07 18:29 | NUR ---
CLOSING NOTE Pt resting quietly in bed with no s/s resp distress, no c/o pain or discomfort. IVF infusing well to JESSE at ordered rate with no s/s infiltration to site. Aspiration, skin and safety precautions remain in place. Call light within reach.
[2018-09-07 20:00] VITALS: BP_SYST 122
--- NOTE | 2018-09-07 20:00 | NUR ---
Pt is fully awake, alert and oriented to her name only. No c/o pain or discomfort and no acute distress noted. IVF of D5 1/2NS is infusing well in JESSE at 100ml/hr without any signs of infiltration. Novak Cath to gravity drainage is draining clear yellowish urine. Fall and safety precautions are in place. Call light is with pt and bed alarm is on.
[2018-09-07] MEDS: ATENOLOL 25 MG TABLET(TENORMIN) PO SCH (20:40)
[2018-09-07] MEDS: LEVOFLOXACIN 250 MG/D5W 50 ML IV SCH (20:40)
[2018-09-07] MEDS: CLOPIDOGREL BISULFATE 75 MG TABLET PO SCH (20:40)
--- NOTE | 2018-09-07 22:00 | NUR ---
Pt is resting quietly in bed. IVF is infusing well in JESSE. Fall and safety precautions are in place.
[2018-09-07] MEDS: VANCOMYCIN HCL 500 MG in NS 100 ML IV SCH (22:03)
--- NOTE | 2018-09-08 | NUR ---
Pt is sleeping comfortably in bed. IVF is infusing well in JESSE. Call light is with pt and bed alarm is on.
[2018-09-08 01:11] VITALS: BP_SYST 117
--- NOTE | 2018-09-08 02:00 | NUR ---
IVF is infusing well in JESSE. No acute distress noted at this time. Call light is with pt and bed alarm is on.
--- NOTE | 2018-09-08 04:00 | NUR ---
Pt is sleeping without any distress noted. IVF is infusing well in JESSE. Fall and safety precautions are in place.
[2018-09-08] MEDS: D5/0.45 NS 1,000 ML IV SCH ×2 (04:39→14:45)
[2018-09-08] MEDS: LEVOTHYROXINE SODIUM 0.075 MG TABLET PO SCH (06:22)
--- NOTE | 2018-09-08 06:30 | NUR ---
Pt is awake and resting quietly in bed. All pt's needs were attended to. IVF is infusing well in JESSE. Fall and safety precautions are in place. Will endorse to day shift nurse.
[2018-09-08 07:38] VITALS: BP_SYST 118
[2018-09-08 07:54] LABS: ALANINE AMINOTRANSFERASE 11 U/L (12-78); ALBUMIN 1.8 g/dL (3.4-4.8); ANION GAP 8 (5-15); ASPARTATE AMINOTRANSFERASE 13 U/L (10-37); C-REACTIVE PROTEIN QUANT 3.1 mg/dL (0-0.5); CALCIUM 8.3 mg/dL (8.4-11.0); CHLORIDE 109 mmol/L (98-107); CREATININE 0.52 mg/dL (0.55-1.30); GLUCOSE 104 mg/dL (70-99); PHOSPHORUS 2.6 mg/dL (2.7-4.5); SODIUM SERUM 141 mmol/L (136-145); TOTAL BILIRUBIN 0.5 mg/dL (0.0-1.0); UREA NITROGEN, BLOOD 4 mg/dL (8-21)
[2018-09-08 07:56] LABS: BASOPHILS # (AUTO) 0.1 K/uL (0.0-0.2); BASOPHILS % (AUTO) 0.5 % (0.0-2.0); EOSINOPHILS # (AUTO) 0.6 K/uL (0.0-0.4); EOSINOPHILS % (AUTO) 5.9 % (0.0-4.0); HEMATOCRIT 30.5 % (36-48); HEMOGLOBIN 10.3 g/dL (12.0-16.0); LYMPHOCYTES # (AUTO) 2.6 K/uL (1.0-5.5); LYMPHOCYTES % (AUTO) 24.5 % (20.5-51.5); MEAN CORPUSCULAR HEMOGLOBIN 31 pg (27-31); MEAN CORPUSCULAR HGB CONC 34 % (32-36); MEAN CORPUSCULAR VOLUME 92 fL (79.0-98.0); MONOCYTES # (AUTO) 0.8 K/uL (0.0-1.0); MONOCYTES % (AUTO) 7.4 % (1.7-9.3); NEUTROPHILS # (AUTO) 6.5 K/uL (1.8-7.7); NEUTROPHILS % (AUTO) 61.7 % (40.0-70.0); PLATELET COUNT (AUTO) 275 K/uL (130-430); RED BLOOD CELL COUNT(AUTO) 3.34 MIL/uL (4.2-6.2); RED CELL DISTRIBUTION WIDTH 13.4 % (9.0-15.0); WHITE BLOOD COUNT (AUTO) 10.5 K/uL (4.8-10.8)
--- NOTE | 2018-09-08 08:00 | NUR ---
Note Pt sitting up in bed being assisted with eating her breakfast, appetite poor. No SOB/resp distress or pain/discomfort noted at this time. Dressings on left arm X2 and on right upper arm CDI at this time. IV in right forearm intact and patent at this time. No needs noted at this time. Call light within reach.
[2018-09-08] MEDS: DOCUSATE SODIUM 100 MG CAPSULE PO SCH (08:16)
[2018-09-08] MEDS: POLYETHYLENE GLYCOL 3350, 17 GM/ POWD.PACK PO SCH ×2 (08:16→21:05)
[2018-09-08] MEDS: ASPIRIN 81 MG TABLET(ECOTRIN) PO SCH (08:16)
[2018-09-08] MEDS: MINERAL OIL/PETROLATUM,WHITE 113 GM CREAM.GM. TP SCH ×3 (08:20→21:05)
[2018-09-08 09:26] LABS: ERYTHROCYTE SEDIMENTATION RATE 74 MM/HR (0-20)
[2018-09-08] MEDS ORDERED: POTASSIUM CHLORIDE 20 MEQ TAB.PRT.SR PO ONE (09:45)
--- NOTE | 2018-09-08 10:10 | NUR ---
Nutrition F/U Pt seen for follow up. RD reviewed all pertinent current MD Progress notes, medication list, labs, and care trends. Pt reported of poor appetite, and w/ some difficulty swallowing. Pt was unsure of when her last BM was. Per RN, pt only had 1/2 of Ensure Enlive and 1/2 cup of coffee this morning. RD was unable to obtain bed scale weight. Per MD notes, fecal impaction continues, colace and miralax are ordered. Pt is not yet meeting adequate nutrition. Full liquid diet remains appropriate. RD rec: continue Full liquid diet per MD orders. Consider advance diet when medically appropriate. High Risk F/U in 2-3 days
--- NOTE | 2018-09-08 11:00 | NUR ---
Note Dr Carrillo at bedside around 0925am, assessment completed, orders written and carried out at this time. No needs noted at this time. Pt asleep at this time. Tele unit attached and intact all shift. Call light within reach.
[2018-09-08 11:29] VITALS: BP_SYST 126
[2018-09-08] MEDS ORDERED: K PHOS 15 MM in NS 250 ML IV ONE (13:30)
--- NOTE | 2018-09-08 13:36 | NUR ---
DC Planning: D/w adam/Trina for dcp to snf, dtr requested pt going back to [facility] . Notified dr. Dr. Carrillo with the dtr ' s request. The md stated can dc the pt. when bed available. Dayna aware that the pt may be dc today if snf accepted and bed available.
--- NOTE | 2018-09-08 14:00 | NUR ---
Discharge Planning: WAP faxed pt referral to [facility] (f [phone] p [phone]) Per Hannah checking insurance. Addendum: 09/08/18 at 1620 by Abeba Mackay DP [facility] (f [phone] p [phone]) patient accepted to [facility] per Hannah.
[2018-09-08 15:32] VITALS: BP_SYST 105
--- NOTE | 2018-09-08 16:00 | NUR ---
Note Pt resting in bed. Pt next to nurses' station all shift for needs and care. No SOB/resp distress or abdominal pain/discomfort noted all shift. IVF's and IVPB antibiotics infusing well at this time through right AC IV site. No needs noted. Pt checked on q1' and PRN all shift for needs and care. Call light within reach.
--- NOTE | 2018-09-08 18:40 | NUR ---
PAGED PAGED DOCTOR DREW
--- NOTE | 2018-09-08 18:50 | NUR ---
Note Pt sitting up in bed and being fed by her daughter dinner. No SOB/resp distress or abdominal pain/discomfort noted at this time. IV in right AC is intact and patent infusing IVF's well. Tele unit intact and attached all shift. Pt checked on q1' and PRN all shift. No needs noted. Call light within reach. Pt's daughter has left bedside and gone home at this time. Pt now watching television - pt next to nurses' station all shift.
--- NOTE | 2018-09-08 18:59 | NUR ---
2ND PAGED PAGED DOCTOR Zeina LOVE
--- NOTE | 2018-09-08 19:10 | NUR ---
TRANSPORT FIRST RESCUE FOR MUSEUM ARCHIVIST AT 2100
--- NOTE | 2018-09-08 19:13 | NUR ---
FAMILY UP DATED. SPOKE WITH LEATHA AND UPDATED HER THAT VOLUNTEER SERVICES MANAGER IS AT 2100 AND SHE IS OK WITH THAT.CONSENT WAS ALREADY SIGNED
--- NOTE | 2018-09-08 19:34 | NUR ---
Pt was received lying in bed fully awake, alert and oriented to her name only. No c/o pain or discomfort and no acute distress noted. IVF of D5 1/2NS is infusing well in JESSE at 100ml/hr without any signs of infiltration. Novak Cath to gravity drainage is draining clear yellowish urine. Fall and safety precautions are in place. Call light is with pt and bed alarm is on.
[2018-09-08 20:00] VITALS: BP_SYST 118
--- NOTE | 2018-09-08 20:00 | NUR ---
Report given to Nurse Gore at [facility].
[2018-09-08] MEDS ORDERED: VANCOMYCIN HCL 500 MG in NS 100 ML IV SCH (20:15)
[2018-09-08] MEDS ORDERED: VANC750V2 IV (20:19)
[2018-09-08 20:22] VITALS: BP_SYST 118
--- NOTE | 2018-09-08 21:00 | NUR ---
Discharge photos of pt's wounds on left arm and sacrum were taken. 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 Wound care was performed per wound care orders.
[2018-09-08] MEDS: CLOPIDOGREL BISULFATE 75 MG TABLET PO SCH (21:01)
[2018-09-08] MEDS: VANCOMYCIN HCL 500 MG in NS 100 ML IV SCH (21:01)
[2018-09-08] MEDS: ATENOLOL 25 MG TABLET(TENORMIN) PO SCH (21:03)
--- NOTE | 2018-09-08 21:05 | NUR ---
Ativan 1mg was given IV to pt per daughter's request prior to transporting pt to [facility]. Fall and safety precautions are in place.
--- NOTE | 2018-09-08 22:01 | NUR ---
Pt's daughter So is at the nurses' station and she stated that her daughter is not going to [facility] in [place] because the location is bad. She stated she requested [facility] in [place]. Dr. Robbie Carrillo was notified and orders were received to cancel transfer to [facility] and to transfer pt to [facility] in [place] when bed is available. Pt's daughter was notified. Nurse Sofía at [facility] was notified. Ambulance personnel who were waiting to transport pt to [facility] were notified and they left. Charge Nurse was also notified.
--- NOTE | 2018-09-08 22:01 | NUR ---
TRANSPORT DAUGHTER CALLED AND SAID TO CONFIRM WHERE THAT TRANSPORT WAS GOING AND WE SAID [facility] AND SHE SAID SHE DOES NOT AGREE WITH THAT SHE WANTS [facility]. AND NOT TO TRANSPORT THE PT. RN AND CHARGE NURSE AWARE
--- NOTE | 2018-09-09 | NUR ---
Pt is sleeping comfortably in bed without any respiratory distress noted. IVF is infusing well in JESSE. Fall and safety precautions are in place.
[2018-09-09 00:28] VITALS: BP_SYST 146
--- NOTE | 2018-09-09 02:00 | NUR ---
Pt is sleeping comfortably in bed. IVF is infusing well in JESSE. Call light is with pt and bed alarm is on.
--- NOTE | 2018-09-09 04:00 | NUR ---
Pt is resting in bed without any distress noted. Fall and safety precautions are in place.
[2018-09-09] MEDS: LEVOTHYROXINE SODIUM 0.075 MG TABLET PO SCH (06:47)
[2018-09-09] MEDS: D5/0.45 NS 1,000 ML IV SCH (06:52)
[2018-09-09 06:57] LABS: BASOPHILS # (AUTO) 0.1 K/uL (0.0-0.2); BASOPHILS % (AUTO) 0.6 % (0.0-2.0); EOSINOPHILS # (AUTO) 0.7 K/uL (0.0-0.4); EOSINOPHILS % (AUTO) 6.4 % (0.0-4.0); HEMATOCRIT 31.6 % (36-48); HEMOGLOBIN 10.3 g/dL (12.0-16.0); LYMPHOCYTES # (AUTO) 2.8 K/uL (1.0-5.5); MEAN CORPUSCULAR HEMOGLOBIN 30 pg (27-31); MEAN CORPUSCULAR HGB CONC 33 % (32-36); MEAN CORPUSCULAR VOLUME 92 fL (79.0-98.0); MONOCYTES % (AUTO) 8.5 % (1.7-9.3); NEUTROPHILS # (AUTO) 6.7 K/uL (1.8-7.7); NEUTROPHILS % (AUTO) 59.5 % (40.0-70.0); PLATELET COUNT (AUTO) 286 K/uL (130-430); RED BLOOD CELL COUNT(AUTO) 3.43 MIL/uL (4.2-6.2); RED CELL DISTRIBUTION WIDTH 13.6 % (9.0-15.0); WHITE BLOOD COUNT (AUTO) 11.2 K/uL (4.8-10.8)
[2018-09-09 07:40] LABS: C-REACTIVE PROTEIN QUANT 1.9 mg/dL (0-0.5); CALCIUM 8.3 mg/dL (8.4-11.0); CHLORIDE 109 mmol/L (98-107); CREATININE 0.42 mg/dL (0.55-1.30); GLUCOSE 89 mg/dL (70-99); POTASSIUM 3.6 mmol/L (3.5-5.1); SODIUM SERUM 139 mmol/L (136-145); UREA NITROGEN, BLOOD 5 mg/dL (8-21)
[2018-09-09 07:50] LABS: ANION GAP 5 (5-15)
[2018-09-09 08:00] VITALS: BP_SYST 117
--- NOTE | 2018-09-09 08:00 | NUR ---
Note Pt asleep and drowsy at this time from Ativan given last night for transfer to [facility] (did not take place). No SOB/resp distress or pain/discomfort noted at this time. IV in right upper arm intact and patent infusing IVF's well at this time. Pt did not get up for breakfast. No needs noted at this time. Pt next to nurses' station for close observation for needs and care. Call light within reach. Dr Carrillo did rounds and orders written and carried out.
--- NOTE | 2018-09-09 08:50 | NUR ---
Discharge Planning: DCP faxed pt referral to [facility] (f [phone] p [phone]) DCP to follow up. Addendum: 09/09/18 at 1502 by Abeba Mackay DP [facility] (f [phone] p [phone]) per [place] patient was accepted, but for IV medication patient will need to have a picc line. AUGUSTA brought this to directors attention and she called the facility and explained a picc line for short term antibiotics is not policy. CM called daughter of patient and received two more options 1. [facility] ([phone] p [phone]) 2. [facility] (f [phone] p [phone]) Addendum: 09/09/18 at 1502 by Abeba Mackay DP [facility] (f [phone] p [phone]) per Megan, no female beds
[2018-09-09] MEDS: ASPIRIN 81 MG TABLET(ECOTRIN) PO SCH (09:00)
[2018-09-09] MEDS: MINERAL OIL/PETROLATUM,WHITE 113 GM CREAM.GM. TP SCH ×2 (09:00→21:38)
[2018-09-09] MEDS: DOCUSATE SODIUM 100 MG CAPSULE PO SCH (09:00)
[2018-09-09 09:49] LABS: ERYTHROCYTE SEDIMENTATION RATE 74 MM/HR (0-20)
--- NOTE | 2018-09-09 10:27 | NUR ---
PT note Patient drowsy and sleepy will hold therapy today; nursing aware.
[2018-09-09] MEDS: POLYETHYLENE GLYCOL 3350, 17 GM/ POWD.PACK PO SCH ×2 (10:30→21:40)
[2018-09-09 11:40] VITALS: BP_SYST 122
--- NOTE | 2018-09-09 11:40 | NUR ---
PAGED PAGED NIKOLAY SAAVEDRA AT [phone] SPOKE WITH .
--- NOTE | 2018-09-09 12:00 | NUR ---
Note Pt still very drowsy and sleepy. IVF's left running, as pt has not woken up to eat or drink anything since 08am. manager business intelligence working on finding pt a bed at [facility]. No needs noted at this time. Call light within reach. Pt's lunch tray at bedside table, pt informed.
--- NOTE | 2018-09-09 13:53 | NUR ---
JONO PLANNING Per jono Us highway landscape architect, not accepted @ [facility]. AUGUSTA Charlton @ lunch, called & spoke w dtr So ph [phone], & informed. States ok w [facility] or [facility] SNF. States there is another snf ok with but not home & cannot think of name. Updated jono Us highway landscape architect.
[2018-09-09] MEDS: NORMAL SALINE 5 ML DISP.SYRIN IVF SCH ×2 (14:00→21:40)
[2018-09-09 15:29] VITALS: BP_SYST 112
--- NOTE | 2018-09-09 16:00 | NUR ---
Note Pt was given hygiene care and bed bath at this time. IVF's are running through right IV AC site. Pt changed into new gown. No SOB/resp distress or pain/discomfort noted at this time. Pt awake and interacting with REMOTE SENSING PROGRAM MANAGER and RN at this time. No needs noted at this time. Call light within reach. Novak catheter intact and draining well.
--- NOTE | 2018-09-09 17:45 | NUR ---
Note Pt's daughter at bedside. Pt drowsy and sleepy at this time. Call light within reach. No needs noted.
--- NOTE | 2018-09-09 18:35 | NUR ---
Note Pt asleep once again, has not been alert enough to eat or drink anything all shift. IVF's infusing well through right upper arm IV site. No SOB/resp distress or pain/discomfort noted all shift. Pt was checked on q1' and PRN all shift for needs and care. No needs noted at this time. Call light within reach and pt next to nurses' station all shift. Novak catheter intact and draining.
--- NOTE | 2018-09-09 19:59 | NUR ---
Pt was received lying in bed sleeping and easily arousable. No respiratory distress noted. IV site in JESSE is without any signs of infiltration. Novak Cath to gravity drainage is draining clear yellowish urine. Fall and safety precautions are in place. Call light is with pt and bed alarm is on.
[2018-09-09 20:00] VITALS: BP_SYST 137
[2018-09-09] MEDS: ATENOLOL 25 MG TABLET(TENORMIN) PO SCH (21:39)
[2018-09-09] MEDS: CLOPIDOGREL BISULFATE 75 MG TABLET PO SCH (21:39)
[2018-09-09] MEDS: VANCOMYCIN HCL 500 MG in NS 100 ML IV SCH (21:39)
--- NOTE | 2018-09-09 22:00 | NUR ---
Pt is resting in bed without any distress noted. Fall and safety precautions are in place.
--- NOTE | 2018-09-10 | NUR ---
Pt is sleeping comfortably in bed without any respiratory distress noted. Fall and safety precautions are in place.
[2018-09-10 00:26] VITALS: BP_SYST 124
--- NOTE | 2018-09-10 02:00 | NUR ---
Pt is sleeping without any respiratory distress noted. Fall and safety precautions are in place.
--- NOTE | 2018-09-10 04:00 | NUR ---
Pt continues to sleep without any distress noted. Fall and safety precautions are in place.
[2018-09-10] MEDS: LEVOTHYROXINE SODIUM 0.075 MG TABLET PO SCH (06:05)
[2018-09-10] MEDS: NORMAL SALINE 5 ML DISP.SYRIN IVF SCH ×2 (06:05→14:41)
[2018-09-10 06:39] LABS: BASOPHILS # (AUTO) 0.1 K/uL (0.0-0.2); BASOPHILS % (AUTO) 0.6 % (0.0-2.0); EOSINOPHILS # (AUTO) 0.6 K/uL (0.0-0.4); HEMATOCRIT 31.7 % (36-48); HEMOGLOBIN 10.7 g/dL (12.0-16.0); LYMPHOCYTES # (AUTO) 2.9 K/uL (1.0-5.5); LYMPHOCYTES % (AUTO) 27.8 % (20.5-51.5); MEAN CORPUSCULAR HEMOGLOBIN 31 pg (27-31); MEAN CORPUSCULAR HGB CONC 34 % (32-36); MEAN CORPUSCULAR VOLUME 91 fL (79.0-98.0); MONOCYTES # (AUTO) 0.9 K/uL (0.0-1.0); MONOCYTES % (AUTO) 8.9 % (1.7-9.3); NEUTROPHILS # (AUTO) 5.9 K/uL (1.8-7.7); NEUTROPHILS % (AUTO) 56.7 % (40.0-70.0); PLATELET COUNT (AUTO) 306 K/uL (130-430); RED BLOOD CELL COUNT(AUTO) 3.49 MIL/uL (4.2-6.2); RED CELL DISTRIBUTION WIDTH 13.3 % (9.0-15.0); WHITE BLOOD COUNT (AUTO) 10.3 K/uL (4.8-10.8)
--- NOTE | 2018-09-10 06:50 | NUR ---
Pt is awake and resting quietly in bed. All pt's needs were attended to. Saline lock is intact in JESSE. Fall and safety precautions are in place. Will endorse to day shift nurse.
[2018-09-10 07:05] LABS: ANION GAP 9 (5-15); C-REACTIVE PROTEIN QUANT 1.9 mg/dL (0-0.5); CALCIUM 8.8 mg/dL (8.4-11.0); CHLORIDE 107 mmol/L (98-107); GLUCOSE 82 mg/dL (70-99); POTASSIUM 3.3 mmol/L (3.5-5.1); SODIUM SERUM 140 mmol/L (136-145); UREA NITROGEN, BLOOD 3 mg/dL (8-21)
--- NOTE | 2018-09-10 07:05 | NUR ---
Opening Note patient resting in bed, awake and alert, no signs of distress, breathing unlabored and symmetrical, no other needs at this time, safety precautions in place, call light and bedside table within reach, room close to station, will continue to monitor
[2018-09-10 08:09] LABS: ERYTHROCYTE SEDIMENTATION RATE 82 MM/HR (0-20)
[2018-09-10 08:20] VITALS: BP_SYST 117
[2018-09-10] MEDS: DOCUSATE SODIUM 100 MG CAPSULE PO SCH (09:02)
[2018-09-10] MEDS: POLYETHYLENE GLYCOL 3350, 17 GM/ POWD.PACK PO SCH ×2 (09:02→20:29)
[2018-09-10] MEDS: ASPIRIN 81 MG TABLET(ECOTRIN) PO SCH (09:02)
[2018-09-10] MEDS: MINERAL OIL/PETROLATUM,WHITE 113 GM CREAM.GM. TP SCH ×2 (09:02→20:32)
--- NOTE | 2018-09-10 09:12 | NUR ---
Medication Administration educated patient regarding meds, verbalized understanding, tolerated well, no signs of aspiration, denies pain at this time, breathing unlabored and symmetrical, safety precautions remain in place, bedside table and call light within reach, room close to station, will continue to monitor patient
[2018-09-10] MEDS ORDERED: POTASSIUM CHLORIDE 20 MEQ TAB.PRT.SR PO ONE ×2 (10:00→13:45)
--- NOTE | 2018-09-10 10:30 | NUR ---
DC Planning: called & spoke w dtr So ph [phone], & informed her that so far there is no accepting facility. So agrees with new searching [facility]. AUGUSTA faxed the referral package attn to [facility] # [phone], tel [phone]. Addendum: 09/10/18 at 1113 by Latesha Barraza RN >> Pt is accepted at [facility], room 10 A bed available now. RN to report # [phone]--CM notified dtr who is now said she preferred pt. to go home with HH. Addendum: 09/10/18 at 1137 by Latesha Barraza RN >> Notified dr. Carrillo of above. He is ok for dc home with HH, ordered to keep f/c , pt. is to f/u with own urologist out patient. >> CM confirmed with Daniella end worker at [facility] that she can monitor the IVL site and judge catheter at the facility. >> CM faxed the referral package to [facility] and s/w [facility] who accepted the pt. She can provide an IV nurse to administer ABX daily and will give IVL and FC care instruction to Daniella at the [facility] facility. Lena will arrange IV med as per order. Addendum: 09/10/18 at 1325 by Latesha Barraza RN >> Informed So that the pt is expecting to be discharged back to [facility] today, with [facility]. So agrees with POC and aware that KENDAL Fregoso will call her for the discharge time. Addendum: 09/10/18 at 1546 by Latesha Barraza RN >> Received call from Sarah PINO, Clinical Director who has a concern that the pt. should PICC line for IV abx . She stated that she will arrange for PICC placement at [facility] out patient . Sarah PINO will see the pt. tomorrow at the B/C. Saritha at [facility] will deliver medication at the B/C Daniella delgado contact number at B/C provided. AUGUSTA Rizzo/adam made aware of the plan above. She is agreeable with out patient PICC placement as needed. >> CM cancelled [facility] with [facility].
[2018-09-10 11:18] VITALS: BP_SYST 105
--- NOTE | 2018-09-10 11:55 | NUR ---
Potassium given at this time as scheduled, educated patient regarding meds, verbalized understanding, tolerated well by mouth, no signs of aspiration, safety precautions remain in place, call light and bedside table within reach, bed alarm on, will continue to monitor
--- NOTE | 2018-09-10 13:30 | NUR ---
Patient resting in bed eyes closed, breathing unlabored and symmetrical, no complaints of pain, safety precautions in place, will continue to monitor
--- NOTE | 2018-09-10 15:40 | NUR ---
Patient had small bowel movement was cleansed and repositioned, tolerated well, safety precautions in place, will continue to monitor
[2018-09-10 15:43] VITALS: BP_SYST 137
--- NOTE | 2018-09-10 16:40 | NUR ---
New IV placed 22 gauge to left forearm, patient tolerated well, no signs of infiltration noted, safety precautions in place, will continue to monitor
[2018-09-10] MEDS ORDERED: VANCOMYCIN HCL 1 GM/NS PREMIX 250 ML IV SCH ×2 (18:00→21:00)
--- NOTE | 2018-09-10 18:44 | NUR ---
Closing Note patient resting in bed, awake and alert, no complaints of pain at this time, breathing unlabored and symmetrical, spoke with daughter So over phone, stated will pick her up at 8pm, safety precautions in place, will endorse to site leasing agent nurse
[2018-09-10 19:42] VITALS: BP_SYST 137
[2018-09-10 20:00] VITALS: BP_SYST 119
[2018-09-10] MEDS: CLOPIDOGREL BISULFATE 75 MG TABLET PO SCH (20:30)
[2018-09-10] MEDS: ATENOLOL 25 MG TABLET(TENORMIN) PO SCH (20:30)
--- NOTE | 2018-09-10 21:30 | NUR ---
pt.was d/c in the care of the pt's dtr.pt.was returned to a B&C:pt.v/s assessed.values w/in normal limits.pt.assessed for pain,nausea.pt.stated no pain,.nausea.i have d/c the iv access;location;rt.antecubital.judge catheter to remain in place. all belongings accounted for.pt.assisted to car per wheel chair.
--- NOTE | 2018-09-15 15:48 | NUR ---
Discharge Follow Up Phone Call [facility] [employer] phoned patient's daughter, So [phone]. Patient is not doing well. She has been receiving services from [facility] for IV antibiotics, but continues to decline. They have decided that hospice would be best for patient. So is currently in the process of signing patient on with [facility].
== END 2018-09-10 21:18 | disposition home health service (06) | DRG 871 ==
LOC: SED 10:53 → SMU 13:27
PROVIDERS: ADMIT Preventive Medicine Preventive Medicine/Occupational Environmental Medicine; ATTEND Preventive Medicine Preventive Medicine/Occupational Environmental Medicine
DX: A41.01 Sepsis due to Methicillin susceptible Staphylococcus aureus (principal); E43 Unspecified severe protein-calorie malnutrition; N17.9 Acute kidney failure, unspecified; Z68.1 Body mass index [BMI] 19.9 or less, adult; I13.0 Hypertensive heart and chronic kidney disease with heart failure and stage 1 through stage 4 chronic kidney disease, or unspecified chronic kidney disease; N13.6 Pyonephrosis; K56.41 Fecal impaction; E83.52 Hypercalcemia; E87.6 Hypokalemia; E03.9 Hypothyroidism, unspecified; B95.2 Enterococcus as the cause of diseases classified elsewhere; E78.5 Hyperlipidemia, unspecified; D64.9 Anemia, unspecified; G30.9 Alzheimer's disease, unspecified; F02.80 Dementia in other diseases classified elsewhere, unspecified severity, without behavioral disturbance, psychotic disturbance, mood disturbance, and anxiety; N13.9 Obstructive and reflux uropathy, unspecified; I50.9 Heart failure, unspecified; R14.0 Abdominal distension (gaseous); R73.9 Hyperglycemia, unspecified; N31.9 Neuromuscular dysfunction of bladder, unspecified; G62.9 Polyneuropathy, unspecified; E83.39 Other disorders of phosphorus metabolism; N18.9 Chronic kidney disease, unspecified; Z85.038 Personal history of other malignant neoplasm of large intestine; Z86.73 Personal history of transient ischemic attack (TIA), and cerebral infarction without residual deficits; Z88.0 Allergy status to penicillin; Z79.899 Other long term (current) drug therapy; Z79.82 Long term (current) use of aspirin; Z85.828 Personal history of other malignant neoplasm of skin; Z90.49 Acquired absence of other specified parts of digestive tract; Z87.440 Personal history of urinary (tract) infections
CPT/HCPCS: 36415; 71045; 80048; 80053; 80202-TC; 81000-TC; 82150-TC; 83605; 83615-TC; 83690-TC; 83735-TC; 84100-TC; 85025; 85610-TC; 85651-TC; 85730-TC; 86140; 87040-TC; 87081; 87086; 87186-TC; 93005; 97116-GP; 97530-GP; 99285; J1956; J2060; J3370; J7050